=== PATIENT | female | born 2000 | race Caucasian/White ===

== ENCOUNTER 2018-09-14 20:20 | Emergency (ER) | payer OTHER ==
[~2018-09-14] VITALS: Ht 157.5 cm; Wt 66.8 kg
[2018-09-14 20:21] VITALS: BP 131/92
[2018-09-14 20:47] LABS: BASOPHILS # (AUTO) 0.02 x10^3/uL (0-0.3); BASOPHILS % (AUTO) 0 % (0-1); EOSINOPHILS # (AUTO) 0.09 x10^3/uL (0-0.8); EOSINOPHILS % (AUTO) 1 % (1-7); LYMPHOCYTES # (AUTO) 0.74 x10^3/uL (1-6.1); LYMPHOCYTES % (AUTO) 7 % (22-44); MD NO; MEAN CORPUSCULAR HEMOGLOBIN 27.3 pg (27.0-34.8); MEAN CORPUSCULAR HGB CONC 32.8 g/dL (32.4-35.8); MEAN CORPUSCULAR VOLUME 83.3 fL (80-100); MEAN PLATELET VOLUME 7.8 fL (7.4-10.4); MONOCYTES # (AUTO) 0.76 x10^3/uL (0-1.4); MONOCYTES % (AUTO) 7 % (2-9); NEUTROPHILS # (AUTO) 9.64 x10^3/uL (1.8-8.0); NEUTROPHILS % (AUTO) 86 % (42-75); PLATELET COUNT 380 x10^3/uL (130-400); RED BLOOD COUNT 5.51 x10^6/uL (3.82-5.3); RED CELL DISTRIBUTION WIDTH 15.6 % (9.6-15.2)
[2018-09-14 20:56] LABS: ALANINE AMINOTRANSFERASE 19 U/L (12-78); ALBUMIN 3.7 g/dL (3.4-5.0); ANION GAP 8 mmol/L (5-15); CALCIUM 8.7 mg/dL (8.5-10.1); CHLORIDE 106 mmol/L (98-107); CREATININE 0.78 mg/dL (0.55-1.02)
[2018-09-14] MEDS ORDERED: ONDANSETRON 2MG/ML, 2ML ONE (20:59)
[2018-09-14] MEDS ORDERED: MORPHINE SULFATE 4 MG/ML, 1ML ONE (20:59)
[2018-09-14] MEDS ORDERED: MORPHINE SULFATE 4 MG/ML, 1ML IVPush PRN (21:00)
[2018-09-14] MEDS ORDERED: ONDANSETRON 2MG/ML, 2ML IVPush ONE (21:00)
[2018-09-14] MEDS ORDERED: SODIUM CHLORIDE 0.9% 1,000ML IVBOLUS ONE (21:00)
[2018-09-14] MEDS ORDERED: SODIUM CHLORIDE FLUSH 10ML SYR IVF ONE (21:00)
[2018-09-14 21:01] LABS: ALKALINE PHOSPHATASE 73 U/L (45-117); BILIRUBIN,TOTAL 0.5 mg/dL (0.2-1.0)
--- NOTE | 2018-09-14 21:55 | NUR ---
REPORT FROM CHERRI [email or web address].PT AMBULATED TO BATHROOM . [facility]A SENT TO LAB. CALL LIGHT IN REACH
[2018-09-14 22:23] LABS: CULTURE INDICATED? NO; MICROSCOPIC NOT IND
--- NOTE | 2018-09-14 22:47 | NUR ---
Patient/Caregiver given discharge instructions and they have confirmed that they understand the instructions. Patient ambulatory with steady gait.
== END 2018-09-14 22:49 | disposition home or self-care (01) ==
LOC: ED 21:41
DX: R11.2 Nausea with vomiting, unspecified (principal); E86.0 Dehydration; R10.84 Generalized abdominal pain
CPT/HCPCS: 36415; 74018; 80053; 81003; 83690; 84703; 85025; 96361; 96374; 96375; 99284; J2270; J2405; J7030